=== PATIENT | female | born 1950 | race Two or more races ===

== ENCOUNTER 2017-08-21 08:51 | Day surgery (SDC) | payer OTHER ==
[2017-08-21] MEDS ORDERED: ROCURONIUM 50 MG INJ (12:21)
[2017-08-21] MEDS ORDERED: GLYCOPYRROLATE 0.4 MG INJ (12:21)
[2017-08-21] MEDS ORDERED: NEOSTIGMINE 3 MG/3 ML SYRINGE (12:21)
[2017-08-21] MEDS ORDERED: CEFAZOLIN 1 GM INJ (12:21)
[2017-08-21] MEDS ORDERED: PROPOFOL 20 ML (12:21)
[2017-08-21] MEDS ORDERED: ONDANSETRON 4 MG INJ (12:24)
[2017-08-21] MEDS ORDERED: DEXAMETHASONE 4 MG/ML 1 ML INJ (12:24)
[2017-08-21] MEDS ORDERED: FENTAnyl 50 MCG/ML VIAL (12:24)
[2017-08-21] MEDS ORDERED: MIDAZOLAM 1 MG/ML 2 ML INJ (12:24)
[2017-08-21] MEDS: COCAINE 4% 4 ML TOP (12:47)
[2017-08-21] MEDS: EPINEPHrine 1 MG INJ (12:47)
[2017-08-21] MEDS: LIDOCAINE 1% (MPF) 30 ML INJ (12:47)
[2017-08-21] MEDS: BACITRACIN/POLYMYXIN 28.35 GM OINT TOP (12:47)
[2017-08-21] MEDS ORDERED: SUGAMMADEX SODIUM 200 MG/2 ML VIAL IV (13:23)
[2017-08-21] MEDS ORDERED: IPRATROPIUM (NEB) 0.5 MG/2.5 ML AMP HHN (13:30)
[2017-08-21] MEDS ORDERED: LABETALOL HCL 20MG INJ IV (13:30)
[2017-08-21] MEDS ORDERED: ALBUTEROL 0.083% (NEB) 2.5 MG/3 ML AMP HHN (13:30)
[2017-08-21] MEDS ORDERED: DIPHENHYDRAMINE 50 MG INJ IV (13:30)
[2017-08-21] MEDS ORDERED: FENTAnyl 50 MCG/ML VIAL IV (13:30)
[2017-08-21] MEDS ORDERED: OXYCODONE/ACETAMINOPHEN (5/325) TAB PO (13:30)
[2017-08-21] MEDS ORDERED: HYDROmorphONE (0.2 MG/ML) 10ML SYG IV ×3 (13:30)
[2017-08-21] MEDS ORDERED: MIDAZOLAM 1 MG/ML 2 ML INJ IV (13:30)
[2017-08-21] MEDS ORDERED: TRIMETHOBENZAMIDE 100 MG/ML VIAL IM (13:30)
[2017-08-21] MEDS ORDERED: hydrALAzine 20 MG INJ IV (13:30)
[2017-08-21] MEDS ORDERED: EPHEDrine SULFATE 50 MG/5 ML SYG IV (13:30)
[2017-08-21] MEDS: MEPERIDINE 25 MG INJ IV (13:37)
[2017-08-21] MEDS: ONDANSETRON 4 MG INJ IV (13:38)
[2017-08-21] MEDS: FENTAnyl 50 MCG/ML VIAL IV ×3 (13:39→13:57)
[2017-08-21] MEDS: OXYCODONE/ACETAMINOPHEN (5/325) TAB PO (14:06)
== END 2017-08-21 15:11 | disposition home or self-care (01) ==
LOC: SDS 08:51
DX: J34.2 Deviated nasal septum (principal); J32.8 Other chronic sinusitis; J34.3 Hypertrophy of nasal turbinates
CPT/HCPCS: 30140; 88300